=== PATIENT | female | born 1980 | race Caucasian/White ===

== ENCOUNTER 2016-10-31 19:18 | Emergency (ER) | payer BC, MEDICAID ==
[2016-10-31 19:48] VITALS: BP 134/80
--- NOTE | 2016-10-31 19:55 | UC ---
Dental HPI - HPI Summary HPI Summary: The patient comes in today for: 1. Tooth pain: Onset: Last night. Palliative/provocative: Touching makes it worse. Hot or cold liquids do not. Quality: Ache Region: Left lower jaw Severity: 6/10 Time: Constant. Associated symptoms: Fever: None Dental visit: August 2016 with another appointment due in November 24. She needs a note for work. *. - History of Current Complaint Stated Complaint: TOOTH PAIN Hx Obtained From: Patient, Family/On Awake Counselor Hx Last Menstrual Period: 10/24/16 ?: No - Allergies/Home Medications Allergies/Adverse Reactions: Allergies Allergy/AdvReac Type Severity Reaction Status Date / Time Amoxicillin Allergy Severe Anaphylatic Verified 01/27/15 20:23 Shock Aspirin Allergy Severe Hives Verified 01/27/15 20:23 Benzonatate [From Tessalon] Allergy Severe Anaphylatic Verified 01/27/15 20:23 Shock Iodine Allergy Severe Rash Verified 01/27/15 20:23 Lidocaine Allergy Severe Anaphylatic Verified 01/27/15 20:23 Shock Naproxen [From Aleve] Allergy Severe Hives Verified 01/27/15 20:23 Cephalexin [From Keflex] Allergy Anaphylatic Verified 01/27/15 20:23 Shock Penicillins Allergy Anaphylatic Verified 01/27/15 20:23 Shock antibiotic allergy to most Allergy Severe Anaphylatic Uncoded 10/20/14 18:03 antibiot Shock PMH/Surg Hx/FS Hx/Imm Hx Previously Healthy: No - Low back pain. Endocrine History Of: Denies: Diabetes, Thyroid Disease, Hyperthyroidism, Hypothyroidism, Dyslipidemia Cardiovascular History Of: Denies: Cardiac Disorders, Hypertension, Pacemaker/ICD, Myocardial Infarction , Congestive Heart Failure, Atrial Fibrillation, Deep Vein Thrombosis, Bleeding Disorders Respiratory History Of: Denies: COPD, Asthma, Bronchitis, Pneumonia, Pulmonary Embolism GI/ History Of: Denies: Gastroesophageal Reflux, Ulcer, Gastrointestinal Bleed, Gall Bladder Disease, Kidney Stones, Diverticulitis, Renal Disease, Urosepsis Neurological History Of: Denies: TIA, CVA, Dementia, Seizures, Migraine - She gets these "here and there." Psychological History Of: Denies: Anxiety, Depression, Bipolar Disorder, Schizophrenia, Post Traumatic Stress Disorder Cancer History Of: Denies: Lung Cancer, Colorectal Cancer, Breast Cancer, Prostate Cancer, Cervical Cancer Other History Of: Negative For: HIV, Hepatitis B, Hepatitis C, Anticoagulant Therapy - Surgical History Surgical History: Yes Surgery Procedure, Year, and Place: right knee - Family History Known Family History: Positive: Unknown - She is adopted. - Social History Occupation: Employed Full-time Alcohol Use: None Substance Use Type: None Smoking Status (MU): Heavy Every Day Tobacco Smoker Type: Cigarettes Amount Used/How Often: 1 ppd Length of Time of Smoking/Using Tobacco: 15 years Have You Smoked in the Last Year: Yes Review of Systems Constitutional: Negative Skin: Negative Eyes: Negative ENT: Dental Pain Respiratory: Negative Cardiovascular: Negative Gastrointestinal: Negative Genitourinary: Negative All Other Systems Reviewed And Are Negative: Yes Physical Exam Triage Information Reviewed: Yes Appearance: Well-Appearing, No Pain Distress, Well-Nourished Vital Signs: Initial Vital Signs Temp 98.0 F 10/31/16 19:40 Pulse 78 10/31/16 19:40 Resp 18 10/31/16 19:40 BP 134/80 10/31/16 19:40 Pulse Ox 99 10/31/16 19:40 Vital Signs Reviewed: Yes Eyes: Positive: Conjunctiva Clear. Negative: Discharge ENT: Positive: Hearing grossly normal. Negative: Pharyngeal erythema, Nasal congestion, Nasal drainage, TM bulging, TM dull, TM red, Tonsillar swelling, Tonsillar exudate Dental: Positive: Gross Decay/Caries @, Dental Fracture @, Other: - Her front left incisors were heavily decayed to the point of only being small shards of a tooth (#23 and #24). And the most proximal teeth #22 through #19 were black dots on the gum line. No discharge or edema or marked redness. Neck: Positive: Supple, Nontender, No Lymphadenopathy. Negative: Nuchal Rigidity Respiratory: Positive: Chest non-tender, Lungs clear, No respiratory distress, No accessory muscle use. Negative: Crackles, Wheezing Cardiovascular: Positive: RRR, No Murmur Abdomen Description: Positive: Nontender, No Organomegaly, Soft. Negative: Distended, Guarding Musculoskeletal: Positive: Strength Intact, ROM Intact, No Edema Neurological: Positive: Muscle Tone Normal Psychological: Positive: Age Appropriate Behavior, Consolable Skin: Negative: rashes, breakdown Diagnostics - Laboratory ABG Interpretation: w b Dental Complaint Course/Dx - Differential Dx/Diagnosis Differential Diagnosis/Dx: Dental Caries Provider Diagnoses: Pulpitis of #19 to #22. Discharge - Discharge Plan Condition: Stable Disposition: HOME Patient Education Materials: Dental Abscess (ED) Forms: *Work Release Referrals: Lacey Velazco MD [Primary Care Provider] - Additional Instructions: Please see a dentist as soon as you can after starting these medications. Use your ibuprofen 800 mg four times a day as needed for pain.
== END 2016-10-31 20:17 | disposition home or self-care (01) ==
LOC: UCEAST 19:18
DX: K04.01 Reversible pulpitis (principal); M54.5 Low back pain; Z88.4 Allergy status to anesthetic agent; Z88.6 Allergy status to analgesic agent; Z88.1 Allergy status to other antibiotic agents; Z88.5 Allergy status to narcotic agent; Z88.0 Allergy status to penicillin; F17.210 Nicotine dependence, cigarettes, uncomplicated
CPT/HCPCS: 99212; G0463

== ENCOUNTER 2017-11-03 18:23 | Emergency (ER) | payer MEDICAID, OTHER ==
[2017-11-03 19:15] VITALS: BP 107/53
--- NOTE | 2017-11-03 19:59 | UC ---
Dental HPI - HPI Summary HPI Summary: 37 y/o female presents to the urgent care c/o left upper jaw pain w/ pain and pressure since yesterday night. Pain is mild 2/10 now. This morning she woke up w/ mild swelling. Pt reports she has an appt in 6 week w/ her Oral surgeon at [facility] for upper jaw surgery of her multiple fracture molar in the upper jaw. Pt states she allergic to multiple ABX and can only take Clindamycin PO. Pt is doing the tea tree oil rinse w/o any relief symptoms. Pt denies fever, trismus, TMJ pain, KISER, SOB, chest pain, abdominal pain, N/V/D. - History of Current Complaint Chief Complaint: UCDentalProblem Stated Complaint: INFECTED TOOTH Time Seen by Provider: 11/03/17 19:51 Hx Obtained From: Patient Hx Last Menstrual Period: 10/18/17 ?: No Onset/Duration: Gradual Onset, Lasting Days - 1 day, Still Present, Worse Since - this morning Severity: Mild Pain Intensity: 2 Pain Scale Used: 0-10 Numeric Aggravating Factor(s): Chewing Alleviating Factor(s): OTC Meds Related History: Swelling - Allergies/Home Medications Allergies/Adverse Reactions: Allergies Allergy/AdvReac Type Severity Reaction Status Date / Time amoxicillin Allergy Anaphylatic Verified 11/03/17 19:44 Shock aspirin Allergy Hives Verified 11/03/17 19:44 benzonatate Allergy Anaphylatic Verified 11/03/17 19:44 [From Tessalon Perles] Shock cephalexin [From Keflex] Allergy Anaphylatic Verified 11/03/17 19:44 Shock iodine Allergy Rash Verified 11/03/17 19:44 lidocaine Allergy Anaphylatic Verified 11/03/17 19:44 Shock Penicillins Allergy Anaphylatic Verified 11/03/17 19:44 Shock PMH/Surg Hx/FS Hx/Imm Hx Previously Healthy: Yes - Pt denies PMHX Other History Of: Negative For: HIV, Hepatitis B, Hepatitis C, Anticoagulant Therapy - Surgical History Surgical History: Yes Surgery Procedure, Year, and Place: right knee, spleen laceration repair, R hand - Family History Known Family History: Positive: Unknown - She is adopted. - Social History Occupation: Employed Full-time Lives: With Family Alcohol Use: None Substance Use Type: None Smoking Status (MU): Heavy Every Day Tobacco Smoker Type: Cigarettes Amount Used/How Often: 1 ppd Length of Time of Smoking/Using Tobacco: 15 years Have You Smoked in the Last Year: Yes Review of Systems Constitutional: Negative Skin: Negative Eyes: Negative ENT: Dental Pain - left upper jaw w/ multiple caries Respiratory: Negative Cardiovascular: Negative Gastrointestinal: Negative Genitourinary: Negative Motor: Negative Neurovascular: Negative Musculoskeletal: Negative Neurological: Negative Psychological: Negative Is Patient Immunocompromised?: No All Other Systems Reviewed And Are Negative: Yes Physical Exam - Summary Physical Exam Summary: Vital Signs Reviewed: Yes General: well developed. well nourished female sitting in the examining table w/ o any apparent distress Eyes: Positive: Conjunctiva Clear - PERRLA, EOMI, fundi grossly normal ENT: Positive: Normal ENT inspection, Hearing grossly normal, Pharyngeal erythema, TMs normal, Uvula midline. Negative: Tonsillar swelling, Tonsillar exudate, Trismus Dental: Positive: Percussion Tenderness @ - fracture molars 13-14 and dental abscess around this areas, severe Gross Decay/Caries upper jaw w/ multiple fractured mollars and teeth and caries, fractured molars and teeth are like black dots on the gum line or upper jaw. Cervical Lymphadenopathy - B/L anterior, Neck: Positive: Supple, Nontender Respiratory: Positive: Chest non-tender, Lungs clear, Normal breath sounds, No respiratory distress Cardiovascular: Positive: RRR, No Murmur, Pulses Normal, Brisk Capillary Refill Abdomen Description: Positive: Nontender, No Organomegaly, Soft. Negative: CVA Tenderness (R), CVA Tenderness (L) Bowel Sounds: Positive: Present Musculoskeletal: Positive: Strength Intact, ROM Intact, No Edema Neurological Exam: Normal Triage Information Reviewed: Yes Vital Signs: Initial Vital Signs Temp 98.2 F 11/03/17 19:08 Pulse 60 11/03/17 19:08 Resp 18 11/03/17 19:08 BP 107/53 11/03/17 19:08 Pulse Ox 100 11/03/17 19:08 Dental Complaint Course/Dx - Course Course Of Treatment: 37 y/o female presents to the urgent care c/o left upper jaw pain w/ pain and pressure since yesterday night. Pain is mild 2/10 now. This morning she woke up w/ mild swelling. Pt reports she has an appt in 6 week w/ her Oral surgeon at [facility] for upper jaw surgery of her multiple fracture molar in the upper jaw. Pt states she allergic to multiple ABX and can only take Clindamycin PO. Pt is doing the tea tree oil rinse w/o any relief symptoms. Pt denies fever, trismus, TMJ pain, KISER, SOB, chest pain, abdominal pain, N/V/D. Hx obtained. Pt w/ Percussion Tenderness @ - fracture molars 13- 14 and dental abscess around this areas, severe Gross Decay/Caries upper jaw w/ multiple fractured mollars and teeth and caries, fractured molars and teeth are like black dots on the gum line or upper jaw on examination. Pt w/ multiple med allergies including Lidocaine. Pt given viscous Lidocaine at the clinic to alleviate symptoms. Pt Rx Clindamycin PO and Naproxen PO for pain. Pt strongly advised to f/u with Dentist or Oral surgeon as soon as possible further evaluation and treatment. Pt understood and agreed with plan of care. Left the clinic ambulating. - Differential Dx/Diagnosis Differential Diagnosis/Dx: Dental Abscess, Dental Caries, Fractured Tooth, Odontogenic Pain, Peridontic Disease, Peritonsillar Abcess, Tonsillitis Provider Diagnoses: 1- Dental abscess on molar. 2- Pulpitis. 2-Gross dental decay and multiple fractured molars Discharge - Sign-Out/Discharge Documenting (check all that apply): Discharge - Discharge Plan Condition: Stable Disposition: HOME Prescriptions: Clindamycin Cap(NF) [Clindamycin Cap 300 mg Cap(NF)] 300 mg PO TID #30 cap Fluconazole 150 MG (NF) [Diflucan 150 mg (NF)] 150 mg PO ONCE #1 tab Naproxen TAB* [Naprosyn 250 mg TAB*] 250 mg PO Q8H PRN #30 tab PRN Reason: dental pain Patient Education Materials: Dental Abscess (ED) Forms: *Work Release Referrals: [facility] [place] [facility]FERR[facility] [Outside] - If Needed Additional Instructions: 1-Please take full course of antibiotic to avoid resistance. Take the Fluconazole PO only if you develop the yeast infection after taking the antibiotic. 2- Take Naproxen as instructed after meals to alleviate pain and swelling. 3- F/u with your Dentist or Dental Surgeon at [facility] in 2-3 days for further treatment. 4- If symptoms do not improve or worsen please return to the urgent care or f/u with your PCP for further evaluation and treatment - Billing Disposition and Condition Condition: STABLE Disposition: HOME
== END 2017-11-03 20:18 | disposition home or self-care (01) ==
LOC: UCEAST 18:23
DX: K04.7 Periapical abscess without sinus (principal); K04.01 Reversible pulpitis; K03.81 Cracked tooth; K02.9 Dental caries, unspecified; Z88.6 Allergy status to analgesic agent; Z88.4 Allergy status to anesthetic agent; Z88.1 Allergy status to other antibiotic agents; Z88.3 Allergy status to other anti-infective agents; Z88.0 Allergy status to penicillin; F17.210 Nicotine dependence, cigarettes, uncomplicated
CPT/HCPCS: 99212; G0463

== ENCOUNTER 2018-06-02 15:05 | Emergency (ER) | payer OTHER ==
[2018-06-02 15:38] VITALS: BP 114/65
--- NOTE | 2018-06-02 15:49 | UC ---
Dental HPI - HPI Summary HPI Summary: has multiple decayed teeth and teeth eroded to the gum line on lower jaw---has pain in right side of lower jaw--no fevers erythema purulence or lymph swelling - History of Current Complaint Chief Complaint: UCDentalProblem Stated Complaint: ORAL/DENTAL COMPLAINT Time Seen by Provider: 06/02/18 15:35 Hx Obtained From: Patient Hx Last Menstrual Period: currently ?: No Onset/Duration: Sudden Onset Pain Intensity: 3 Pain Scale Used: 0-10 Numeric Aggravating Factor(s): Nothing Alleviating Factor(s): Other (see comments) Related History: Previous Dental Care on Same Tooth, Swelling - gum - Allergies/Home Medications Allergies/Adverse Reactions: Allergies Allergy/AdvReac Type Severity Reaction Status Date / Time amoxicillin Allergy Anaphylatic Verified 06/02/18 15:38 Shock aspirin Allergy Hives Verified 06/02/18 15:38 benzonatate Allergy Anaphylatic Verified 06/02/18 15:38 [From Tessalon Perles] Shock cephalexin [From Keflex] Allergy Anaphylatic Verified 06/02/18 15:38 Shock iodine Allergy Rash Verified 06/02/18 15:38 lidocaine Allergy Anaphylatic Verified 06/02/18 15:38 Shock Penicillins Allergy Anaphylatic Verified 06/02/18 15:38 Shock Home Medications: Home Medications Buprenorp/Nalox 2-0.5 MG SL TB [Suboxone 2-0.5 mg SL TAB*] 0.25 mg SL DAILY [History Confirmed 06/02/18] Gabapentin CAP(*) [Neurontin 100 mg CAP(*)] 1,600 mg PO QID 06/02/18 [History Confirmed 06/02/18] PMH/Surg Hx/FS Hx/Imm Hx Previously Healthy: No - opiate abuse disorder Other History Of: Negative For: HIV, Hepatitis B, Hepatitis C, Anticoagulant Therapy - Surgical History Surgical History: Yes Surgery Procedure, Year, and Place: right knee, spleen laceration repair, R hand - Family History Known Family History: Positive: Unknown - She is adopted. - Social History Occupation: Employed Full-time Lives: With Family Alcohol Use: None Substance Use Type: None Substance Use Comment - Amount & Last Used: recovering addict Smoking Status (MU): Heavy Every Day Tobacco Smoker Type: Cigarettes Amount Used/How Often: 1 ppd Length of Time of Smoking/Using Tobacco: 15 years Have You Smoked in the Last Year: Yes Review of Systems All Other Systems Reviewed And Are Negative: Yes Constitutional: Positive: Negative Skin: Positive: Negative Eyes: Positive: Negative ENT: Positive: Dental Pain Respiratory: Positive: Negative Cardiovascular: Positive: Negative Gastrointestinal: Positive: Negative Genitourinary: Positive: Negative Motor: Positive: Negative Neurovascular: Positive: Negative Musculoskeletal: Positive: Negative Neurological: Positive: Negative Psychological: Positive: Negative Is Patient Immunocompromised?: No Physical Exam Triage Information Reviewed: Yes Appearance: Well-Appearing, No Pain Distress, Well-Nourished Vital Signs: Initial Vital Signs Temp 98 F 06/02/18 15:33 Pulse 80 06/02/18 15:33 Resp 16 06/02/18 15:33 BP 114/65 06/02/18 15:33 Pulse Ox 100 06/02/18 15:33 Vital Signs Reviewed: Yes Eye Exam: Normal Eyes: Positive: Conjunctiva Clear ENT Exam: Normal ENT: Positive: Normal ENT inspection, Hearing grossly normal. Negative: Trismus , Muffled voice, Hoarse voice Dental Exam: Other Dental: Positive: Gross Decay/Caries @ - all bottom teeth Neck exam: Normal Neck: Positive: Supple, Nontender Respiratory Exam: Normal Respiratory: Positive: Chest non-tender, Lungs clear, Normal breath sounds, No respiratory distress, No accessory muscle use Cardiovascular Exam: Normal Cardiovascular: Positive: RRR, No Murmur, Pulses Normal, Brisk Capillary Refill Musculoskeletal Exam: Normal Musculoskeletal: Positive: Strength Intact, ROM Intact, No Edema Neurological Exam: Normal Psychological Exam: Normal Skin Exam: Normal Dental Complaint Course/Dx - Course Course Of Treatment: chlorhex. mouth wash, clindamycin, diflucan prn follow with oral surgeon follow up-- - Differential Dx/Diagnosis Provider Diagnoses: dental fractures and decay Discharge - Sign-Out/Discharge Documenting (check all that apply): Patient Departure All imaging exams completed and their final reports reviewed: No Studies - Discharge Plan Condition: Stable Disposition: HOME Prescriptions: Chlorhexidine MW 0.12% 473ML* [Peridex Mouth Wash 0.12%] 15 ml MT BID #437 ml Clindamycin Cap(NF) [Clindamycin Cap 300 mg Cap(NF)] 300 mg PO Q6H #40 cap Fluconazole [Diflucan 150 MG (NF)] 150 mg PO ONCE #2 tab Patient Education Materials: Dental Abscess (ED) Referrals: Nestor Cano DMD [Doctor of Dental Medicine] - 1 Week - Billing Disposition and Condition Condition: STABLE Disposition: Home - Attestation Statements Provider Attestation: I was available for consult. This patient was seen by the CARTER. The patient was not presented to, seen by, or examined by me. -Tenzin
== END 2018-06-02 15:59 | disposition home or self-care (01) ==
LOC: UCEAST 15:05
DX: S02.5XXA Fracture of tooth (traumatic), initial encounter for closed fracture (principal); K02.9 Dental caries, unspecified; F17.210 Nicotine dependence, cigarettes, uncomplicated; Z88.0 Allergy status to penicillin; Z88.6 Allergy status to analgesic agent; Z88.1 Allergy status to other antibiotic agents; Z88.4 Allergy status to anesthetic agent; Z88.8 Allergy status to other drugs, medicaments and biological substances; X58.XXXA Exposure to other specified factors, initial encounter; Y92.9 Unspecified place or not applicable
CPT/HCPCS: 99212; G0463

== ENCOUNTER 2018-10-19 11:12 | Emergency (ER) | payer SELFPAY ==
[2018-10-19 11:46] VITALS: BP 144/77
[2018-10-19] MEDS ORDERED: predniSONE TAB* 20 MG PO ONE (11:57)
--- NOTE | 2018-10-19 11:59 | UC ---
Skin Complaint HPI - HPI Summary HPI Summary: 38 -year-old female who was at work at [employer] today when she started developing an itchy rash to her arms. 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 She denies any difficulty breathing or facial swelling. She also has a mild rash around the neck which she states she had rubbed her neck with those as well. - History of Current Complaint Chief Complaint: UCSkin Time Seen by Provider: 10/19/18 11:38 Stated Complaint: RASH Hx Obtained From: Patient Hx Last Menstrual Period: 09/29/18 ?: No Onset/Duration: Sudden Onset Skin Exposure Onset/Duration: Minutes Ago Timing: Constant Onset Severity: Moderate Current Severity: Mild - Patient took 2 Benadryl and now has improvement with the itchiness as well as redness of the rash. Pain Intensity: 0 Location: Other - Both forearms and hands as well as around the neck. Character: Swelling - Minimal swelling of the dorsum of both hands., Pruritus, Redness Aggravating Factor(s): Nothing Alleviating Factor(s): Antihistamines - Allergy/Home Medications Allergies/Adverse Reactions: Allergies Allergy/AdvReac Type Severity Reaction Status Date / Time amoxicillin Allergy Anaphylatic Verified 10/19/18 11:46 Shock aspirin Allergy Hives Verified 10/19/18 11:46 benzonatate Allergy Anaphylatic Verified 10/19/18 11:46 [From Tessalon Perles] Shock cephalexin [From Keflex] Allergy Anaphylatic Verified 10/19/18 11:46 Shock iodine Allergy Rash Verified 10/19/18 11:46 lidocaine Allergy Anaphylatic Verified 10/19/18 11:46 Shock Penicillins Allergy Anaphylatic Verified 10/19/18 11:46 Shock Home Medications: Home Medications Naproxen TAB* [Naprosyn 250 mg TAB*] 250 mg PO Q8H PRN 10/19/18 [History Confirmed 10/19/18] PMH/Surg Hx/FS Hx/Imm Hx Previously Healthy: Yes Other History Of: Negative For: HIV, Hepatitis B, Hepatitis C, Anticoagulant Therapy - Surgical History Surgical History: Yes Surgery Procedure, Year, and Place: right knee, spleen laceration repair, R hand - Family History Known Family History: Positive: Unknown - She is adopted. - Social History Alcohol Use: None Substance Use Type: None Substance Use Comment - Amount & Last Used: recovering addict Smoking Status (MU): Heavy Every Day Tobacco Smoker Type: Cigarettes Amount Used/How Often: 1 ppd Length of Time of Smoking/Using Tobacco: 15 years Have You Smoked in the Last Year: Yes Review of Systems All Other Systems Reviewed And Are Negative: Yes Skin: Positive: Rash - Red itchy rash on forearms, around the neck, dorsum of both hands. Is Patient Immunocompromised?: No Physical Exam Triage Information Reviewed: Yes Appearance: Well-Appearing, No Pain Distress, Well-Nourished Vital Signs: Initial Vital Signs Temp 98.3 F 10/19/18 11:41 Pulse 99 10/19/18 11:41 Resp 16 10/19/18 11:41 BP 144/77 10/19/18 11:41 Pulse Ox 99 10/19/18 11:41 Vital Signs Reviewed: Yes ENT: Positive: Normal ENT inspection Neck exam: Normal Neck: Positive: Supple, Nontender, No Lymphadenopathy Respiratory Exam: Normal Respiratory: Positive: Lungs clear, Normal breath sounds, No respiratory distress, No accessory muscle use. Negative: Rhonchi, Stridor, Wheezing Cardiovascular Exam: Normal Cardiovascular: Positive: RRR, No Murmur, Pulses Normal, Brisk Capillary Refill Musculoskeletal Exam: Normal Neurological Exam: Normal Psychological Exam: Normal Skin: Positive: Rashes - Red areas of contact dermatitis on both forearms, around her neck, dorsum of her hands, with minimal swelling of the dorsum of her hands. Course/Dx - Course Course Of Treatment: Patient took Benadryl prior to arrival and she states she has some improvement in the itching and the redness of the rash. She denies any wheezing or difficulty breathing. Started her on prednisone 40 mg daily for 5 days with the first dose given here. Follow-up with her primary care provider if no improvement in 2 or 3 days. She is to go to the emergency room if she has any difficulty breathing, wheezing, shortness of breath facial swelling or feeling like her throat is closing. Patient is agreeable to this plan of action. She was given no work today. - Diagnoses Provider Diagnosis: Contact dermatitis Discharge - Sign-Out/Discharge Documenting (check all that apply): Patient Departure All imaging exams completed and their final reports reviewed: No Studies - Discharge Plan Condition: Fair Disposition: HOME Prescriptions: predniSONE TAB* [Deltasone 20 MG TAB*] 40 mg PO DAILY 4 Days #8 tab Patient Education Materials: Contact Dermatitis (DC) Forms: *Work Release Referrals: [facility] [Outside] No Primary Care Phys,NOPCP [Primary Care Provider] - Additional Instructions: May continue Benadryl 25 mg to 50 mg every 6 hours as needed. Take the prednisone with food and start that tomorrow since you were given today's dose here. Go to the emergency room if you have any difficulty breathing, wheezing, facial or body swelling. Follow-up with your primary care provider if no improvement in 3 or 4 days. - Billing Disposition and Condition Condition: FAIR Disposition: Home
== END 2018-10-19 12:18 | disposition home or self-care (01) ==
LOC: UCEAST 11:12
DX: L25.9 Unspecified contact dermatitis, unspecified cause (principal); F17.210 Nicotine dependence, cigarettes, uncomplicated; Z88.0 Allergy status to penicillin; Z88.8 Allergy status to other drugs, medicaments and biological substances; Z88.4 Allergy status to anesthetic agent
CPT/HCPCS: 99212; G0463; J7512